=== PATIENT | female | born 1970 | race Caucasian/White ===

== ENCOUNTER 2018-05-19 10:18 | Emergency (ER) | payer OTHER ==
[~2018-05-19] VITALS: Ht 154.9 cm; Wt 86.8 kg
[~2018-05-19 10:18] MED LIST: ACIPHEX20 MG PO; ALLEGRA180 MG PO; AUGMENTIN500TAB PO; CALCIUM GUMMIES PO; CIPROFLOXACN500 MG PO; MAGNESIUM-OX400 MG PO; MULTI VIT PO; ONDANSETRON4 MG PO; PHENERGAN25 MG RE; VITAMIN D-32000 UNI1 PO; ZITHROMAX250 MG PO; [UNRECOGNIZED DRUG - SUPPLY] IN
[2018-05-19] MEDS ORDERED: VALACYCLOVIR HCL1 GM PO (10:54)
[2018-05-19] MEDS ORDERED: CIPROFLOXACN0.3 % OU (10:54)
[2018-05-19 10:56] VITALS: BP 136/94
== END 2018-05-19 10:58 | disposition home or self-care (01) | DRG 125 ==
LOC: ED 10:18
DX: H10.023 Other mucopurulent conjunctivitis, bilateral (principal); H53.8 Other visual disturbances

== ENCOUNTER 2018-10-10 04:04 | Emergency (ER) | payer OTHER ==
[~2018-10-10] VITALS: Ht 154.9 cm; Wt 88.6 kg
[~2018-10-10 04:04] MED LIST changes: +CIPROFLOXACN0.3 % OU; +VALACYCLOVIR HCL1 GM PO
[2018-10-10 05:12] LABS: HEMATOCRIT 43.3 % (37.0-47.0); IMMATURE GRANULOCYTES 0.4 % (0.0-5.0); MEAN CELL VOLUME 85.9 fL CALC (80.0-100.0); MEAN CORPUSCULAR HGB 28.2 pG CALC (26.0-32.0); MEAN CORPUSCULAR HGB CONC 32.8 g/L CALC (32.0-36.0); NEUT# 8.12 thou/uL (2.00-7.15); RED BLOOD COUNT 5.04 mill/uL (4.20-5.60); RED CELL DISTRI WIDTH 14.5 % (11.5-15.5)
[2018-10-10 05:13] LABS: HEMOGLOBIN 14.2 g/dl (12.0-16.0)
[2018-10-10 05:26] LABS: ALKALINE PHOSPHATASE 81 u/l (38-126); AMYLASE 44 u/l (30-110); ANION GAP 17 (6-22 (CALC)); BILIRUBIN, TOTAL 0.7 mg/dL (0.0-1.4); BUN 10 mg/dL (7-17); BUN/CREATININE RATIO 16 (12-20 (CALC)); CARBON DIOXIDE 25 mmol/l (22-30); CHLORIDE 104 mmol/l (95-108); CREATININE 0.6 mg/dL (0.5-1.0); GFR > 60 ML/MIN (>=60 (CALC)); GFR FOR AFR.AMER. > 60 ML/MIN (>=60 (CALC)); LIPASE 69 u/l (23-300); POTASSIUM 3.9 mmol/l (3.5-5.1); SGOT/AST 42 u/l (14-36); SODIUM 141 mmol/l (137-146)
[2018-10-10 05:39] LABS: TOTAL PROTEIN 8.2 g/dL (6.3-8.2)
[2018-10-10 05:40] LABS: ALBUMIN 4.5 g/dL (3.2-5.0)
[2018-10-10 05:50] LABS: URINE BILIRUBIN - DIPSTICK NEGATIVE (NEGATIVE); URINE BLOOD DIPSTICK NEGATIVE (NEGATIVE); URINE COLOR YELLOW; URINE GLUCOSE - DIPSTICK NEGATIVE (NEGATIVE); URINE KETONE NEGATIVE (NEGATIVE); URINE LEUK ESTERASE NEGATIVE (NEGATIVE); URINE NITRITE - DIPSTICK NEGATIVE (Negative); URINE PROTEIN - DIPSTICK NEGATIVE (NEG-TRACE); URINE SPECIFIC GRAVITY <=1.005; URINE UROBILINOGEN - DIPSTICK 0.2 E.U./dL (0.2)
[2018-10-10] MEDS ORDERED: ZOFRAN ODT4 MG PO (07:56)
[2018-10-10] MEDS ORDERED: CARAFATE1 GM/10 M1 PO (07:56)
[2018-10-10 08:09] VITALS: BP 136/64
== END 2018-10-10 08:23 | disposition home or self-care (01) | DRG 392 ==
LOC: ED 04:04
PROVIDERS: Emergency Medicine
DX: K52.9 Noninfective gastroenteritis and colitis, unspecified (principal)
CPT/HCPCS: S0164

== ENCOUNTER 2019-05-18 15:45 | Emergency (ER) | payer OTHER ==
[~2019-05-18] VITALS: Ht 154.9 cm; Wt 84.0 kg
[~2019-05-18 15:45] MED LIST changes: +CARAFATE1 GM/10 M1 PO; +ZOFRAN ODT4 MG PO
[2019-05-18 17:19] VITALS: BP 146/87
[2019-05-18] MEDS ORDERED: TORADOL PO (17:27)
[2019-05-18] MEDS ORDERED: FLEXERIL PO (17:27)
== END 2019-05-18 17:44 | disposition home or self-care (01) | DRG 563 ==
LOC: ED 15:45
DX: S29.012A Strain of muscle and tendon of back wall of thorax, initial encounter (principal); M51.86 Other intervertebral disc disorders, lumbar region; V49.50XA Passenger injured in collision with unspecified motor vehicles in traffic accident, initial encounter

== ENCOUNTER 2019-06-11 16:53 | Emergency (ER) | payer OTHER ==
[~2019-06-11] VITALS: Ht 154.9 cm; Wt 100.0 kg
[~2019-06-11 16:53] MED LIST changes: +FLEXERIL PO; +TORADOL PO
[2019-06-11] MEDS ORDERED: Levaquin PO (17:24)
[2019-06-11 17:57] LABS: HEMATOCRIT 44.1 % (37.0-47.0); HEMOGLOBIN 14.3 g/dl (12.0-16.0); IMMATURE GRANULOCYTES 0.6 % (0.0-5.0); MEAN CORPUSCULAR HGB 27.6 pG CALC (26.0-32.0); MEAN CORPUSCULAR HGB CONC 32.4 g/L CALC (32.0-36.0); NEUT# 5.51 thou/uL (2.00-7.15); RED BLOOD COUNT 5.19 mill/uL (4.20-5.60); RED CELL DISTRI WIDTH 13.8 % (11.5-15.5)
[2019-06-11 18:09] LABS: ALBUMIN 4.9 g/dL (3.2-5.0); ALKALINE PHOSPHATASE 82 u/l (38-126); ANION GAP 15 (6-22 (CALC)); BILIRUBIN, TOTAL 0.5 mg/dL (0.0-1.4); BUN 10 mg/dL (7-17); BUN/CREATININE RATIO 15 (12-20 (CALC)); CARBON DIOXIDE 29 mmol/l (22-30); CHLORIDE 100 mmol/l (95-108); CREATININE 0.7 mg/dL (0.5-1.0); GFR > 60 ML/MIN (>=60 (CALC)); GFR FOR AFR.AMER. > 60 ML/MIN (>=60 (CALC)); POTASSIUM 3.7 mmol/l (3.5-5.1); SGOT/AST 27 u/l (14-36); SODIUM 140 mmol/l (137-146); TOTAL PROTEIN 8.2 g/dL (6.3-8.2)
[2019-06-11] MEDS ORDERED: XOPENEX HF45 MCG/ACT IN (19:59)
[2019-06-11] MEDS ORDERED: TESSALON PERLE100 MG PO (19:59)
[2019-06-11] MEDS ORDERED: MEDDOSEPAK PO (19:59)
[2019-06-11 20:00] VITALS: BP 107/66
== END 2019-06-11 20:16 | disposition home or self-care (01) | DRG 204 ==
LOC: ED 16:53
DX: R05 Cough (principal)

== ENCOUNTER 2019-10-25 | Emergency (ER) | payer BC ==
[~2019-10-25] MED LIST changes: +Levaquin PO; +MEDDOSEPAK PO; +TESSALON PERLE100 MG PO; +XOPENEX HF45 MCG/ACT IN
[2019-10-25 17:21] LABS: HEMATOCRIT 41.5 % (37.0-47.0); HEMOGLOBIN 13.3 g/dl (12.0-16.0); IMMATURE GRANULOCYTES 0.2 % (0.0-5.0); MEAN CELL VOLUME 85.9 fL CALC (80.0-100.0); MEAN CORPUSCULAR HGB 27.5 pG CALC (26.0-32.0); NEUT# 6.19 thou/uL (2.00-7.15); RED BLOOD COUNT 4.83 mill/uL (4.20-5.60); RED CELL DISTRI WIDTH 13.6 % (11.5-15.5)
[2019-10-25 17:52] LABS: ANION GAP 12 (6-22 (CALC)); BUN 13 mg/dL (7-17); BUN/CREATININE RATIO 20 (12-20 (CALC)); CARBON DIOXIDE 30 mmol/l (22-30); CHLORIDE 100 mmol/l (95-108); CREATININE 0.7 mg/dL (0.5-1.0); GFR > 60 ML/MIN (>=60 (CALC)); GFR FOR AFR.AMER. > 60 ML/MIN (>=60 (CALC)); POTASSIUM 3.8 mmol/l (3.5-5.1); SODIUM 138 mmol/l (137-146)
== END 2019-10-25 18:56 | disposition home or self-care (01) | DRG 103 ==
PROVIDERS: Family Medicine
DX: R51 Headache (principal); I10 Essential (primary) hypertension

== ENCOUNTER 2022-03-16 03:23 | Emergency (ER) | payer BC ==
[~2022-03-16] VITALS: Ht 154.9 cm; Wt 87.2 kg
[2022-03-16 03:29] VITALS: BP 150/98
[2022-03-16 03:30] VITALS: BP 155/91
[2022-03-16 03:45] VITALS: BP 161/100
[2022-03-16 04:00] VITALS: BP 153/88
[2022-03-16 04:15] VITALS: BP 140/91
== END 2022-03-16 04:19 | disposition home or self-care (01) | DRG 392 ==
LOC: ED 03:23
DX: K21.9 Gastro-esophageal reflux disease without esophagitis (principal); I10 Essential (primary) hypertension; Z79.899 Other long term (current) drug therapy